=== PATIENT | female | born 1965 | race Caucasian/White ===

== ENCOUNTER 2017-07-16 10:07 | Day surgery (SDC) | payer BC, OTHER ==
[2017-07-15 09:36] VITALS: BMI 37.5
[2017-07-16] MEDS ORDERED: PROPOFOL 20 ML ONE ×2 (12:02)
[2017-07-16 12:49] VITALS: TEMP 98.5
[2017-07-16 13:34] VITALS: BP 105/65; PULSE 62
--- NOTE | 2017-07-19 11:42 | PATH ---
Surgical Pathology Report Patient Name: JUNIOR BENAVIDES [facility]. Rec. #: [id number] /Age/Gender: 1965 (Age: 51) / F Account: [id number] Location: [facility]-ENDOSCOPY Taken: 07/16/2017 Received: 07/16/2017 Reported: 07/19/2017 Physicians: Odilia Silva M.D. Specimen(s) Received A: BX PREPYLORIC POLYP B: BX 2ND PORTION DUODENUM BULB C: BX GASTRIC ANTRUM D: BX DISTAL, MID-ESOPHAGUS Clinical History Preoperative diagnosis: Acid reflux Postoperative diagnosis: Gastric polyp, hiatal hernia, GERD Final Diagnosis A. STOMACH, PREPYLORIC POLYP, BIOPSY: MILD CHRONIC GASTRITIS WITH FOVEOLAR HYPERPLASIA AND FOCAL INTESTINAL METAPLASIA. NO DYSPLASIA IDENTIFIED. IMMUNOSTAIN FOR H. PYLORI IS NEGATIVE. B. DUODENUM, SECOND PORTION OF BOWEL, BIOPSY: DUODENAL MUCOSA WITH NO PATHOLOGIC CHANGES. NO HISTOLOGIC EVIDENCE OF GLUTEN SENSITIVE ENTEROPATHY (CELIAC SPRUE) IDENTIFIED. C. STOMACH, ANTRUM, BIOPSY: GASTRIC ANTRAL AND FUNDIC MUCOSA WITH NO SIGNIFICANT PATHOLOGIC CHANGES. IMMUNOSTAIN FOR H. PYLORI IS NEGATIVE. D. ESOPHAGUS, DISTAL AND MID, BIOPSY: SQUAMOUS EPITHELIUM WITH PAPILLOMATOSIS SUGGESTIVE OF REFLUX ESOPHAGITIS. NO INTESTINAL METAPLASIA IDENTIFIED (NO DRIVER'S IDENTIFIED). NO EOSINOPHILIC ESOPHAGITIS IDENTIFIED. Electronically Signed Hero Gonzalez M.D. Gross Description A. Received in formalin, labeled "biopsy prepyloric polyp" are 2 hill, irregular portions of soft tissue measuring 0.2 and 0.5 cm. in greatest dimension. The specimens are submitted in toto in one cassette. B. Received in formalin, labeled "biopsy second portion of duodenum and bulb" are 4 hill, irregular portions of soft tissue ranging from 0.1-0.3 cm. in greatest dimension. The specimens are submitted in toto in one cassette. C. Received in formalin, labeled "biopsy antrum" are 4 hill, irregular portions of soft tissue ranging from 0.2-0.8 cm. in greatest dimension. The specimens are submitted in toto in one cassette. D. Received in formalin, labeled "biopsy distal, mid esophagus" are 2 hill, irregular portions of soft tissue averaging 0.3 cm. in greatest dimension. The specimens are submitted in toto in one cassette. 07/16/2017/2017
== END 2017-07-16 13:34 | disposition home or self-care (01) ==
LOC: JASU-ENDO 10:07
PROVIDERS: ATTEND Internal Medicine Gastroenterology
PROC: 0DB68ZX Excision of Stomach, Via Natural or Artificial Opening Endoscopic, Diagnostic (ICD-10-PCS; 2017-07-16)
PROC: 0DB28ZX Excision of Middle Esophagus, Via Natural or Artificial Opening Endoscopic, Diagnostic (ICD-10-PCS; 2017-07-16)
PROC: 0DB38ZX Excision of Lower Esophagus, Via Natural or Artificial Opening Endoscopic, Diagnostic (ICD-10-PCS; principal; 2017-07-16 12:00)
DX: K21.9 Gastro-esophageal reflux disease without esophagitis (principal); K44.9 Diaphragmatic hernia without obstruction or gangrene; K31.7 Polyp of stomach and duodenum
CPT/HCPCS: 76705-TC; 84703; 88305-TC; 88342-TC

== ENCOUNTER → 2018-06-09 | Day surgery (SDC) | payer BC ==
--- NOTE | 2018-06-10 17:45 | PATH ---
Cytology Non-Gynecological Report Patient Name: JUNIOR BENAVIDES [facility]. Rec. #: [id number] /Age/Gender: 1965 (Age: 52) / F Account: [id number] Location: RADIOLOGY INTER Taken: 06/09/2018 Received: 06/09/2018 Reported: 06/10/2018 Physicians: Avi Flores M.D. Specimen(s) Received RIGHT THYROID FNA Clinical History Right thyroid nodule, 2.91 x 2.45 x 1.31 cm Final Diagnosis THYROID, RIGHT, FINE NEEDLE ASPIRATION: SATISFACTORY FOR EVALUATION. BETHESDA III: ATYPIA OF UNDETERMINED SIGNIFICANCE IN THE SETTING OF CHRONIC LYMPHOCYTIC THYROIDITIS. CELLULAR CLUSTERS OF ATYPICAL FOLLICULAR CELLS WITH NUCLEAR ENLARGEMENT, NUCLEAR GROOVES, AND CROWDING DISPERSED TRABECULAR FRAGMENTS, MACRO AND MICRO FOLLICLES IN A BACKGROUND OF HETEROGENOUS LYMPHOCYTES, LYMPHOHISTIOCYTIC AGGREGATES AND LYMPHOID TANGLES PRESENT. Comment:Suggest clinical/radiologic correlation and repeat sampling after an appropriate interval (3-6 months) with material for molecular studies (Thyroseq), as clinically warranted. Electronically Signed Lauryn Mcleod M.D. Gross Description Received are eight direct smears, four of which are air-dried and Diff-Quik stained, and four of which are alcohol fixed and Pap stained. Also received is 20 ml of bloody formalin from which one cellblock is prepared.
== END | disposition home or self-care (01) ==
LOC: JRADIR 09:23
PROVIDERS: ATTEND Internal Medicine Endocrinology, Diabetes & Metabolism
PROC: 0G9K3ZX Drainage of Thyroid Gland, Percutaneous Approach, Diagnostic (ICD-10-PCS; principal; 2018-06-09)
DX: E06.3 Autoimmune thyroiditis (principal)
CPT/HCPCS: 76942; 88173; 88305-TC

== ENCOUNTER 2018-09-29 12:28 | Day surgery (SDC) | payer BC ==
[2018-09-29 12:31] VITALS: BMI 34.2
--- NOTE | 2018-09-29 12:33 | PDOC ---
History of Present Illness - General Chief Complaint: Nausea/Vomiting Stated Complaint: HARD TIME HOLDING FOOD DOWN Time Seen by Provider: 09/29/18 12:32 - History of Present Illness Initial Comments: 09/29/18 12:43 2 weeks of regurg after eating had lap band surgery 2006 went to see lap band surgeon 1 week ago who recommended coming to ED if symptoms persisted denies abdominal tenderness, fever, current nausea, chest pain, diarrhea Surgeon at bedside who Past History - Past Medical History Allergies/Adverse Reactions: Allergies Allergy/AdvReac Type Severity Reaction Status Date / Time No Known Allergies Allergy Verified 09/29/18 12:29 Home Medications: Ambulatory Orders Levothyroxine [Synthroid -] 200 mcg PO HS 11/18/12 Ranitidine [Zantac -] 150 mg PO DAILY 09/29/18 Anemia: Yes (IRON DEFICIENCY) Asthma: No Cancer: No Cardiac Disorders: No CVA: No COPD: No CHF: No Dementia: No Diabetes: No GI Disorders: Yes (DIVERTICULOSIS,GERD,HIATAL HERNIA) Disorders: No HTN: No Hypercholesterolemia: Yes Liver Disease: No Seizures: No Thyroid Disease: Yes (HYPO - NODULES) - Surgical History Abdominal Surgery: Yes (Laparoscopic Gastric Banding 10 yrs ago) Appendectomy: No Cardiac Surgery: No Cholecystectomy: No Lung Surgery: No Neurologic Surgery: Yes (microdisectomy L4L5) Orthopedic Surgery: Yes (hammer toe repair left foot 2017) - Suicide/Smoking/Psychosocial Hx Smoking History: Never smoked Hx Alcohol Use: No Drug/Substance Use Hx: No Substance Use Type: None Hx Substance Use Treatment: No *Physical Exam - Vital Signs Last Vital Signs Temp Pulse Resp BP Pulse Ox 0/0 L 09/29/18 12:28 Moderate Sedation - Procedure Monitoring Vital Signs: Procedure Monitoring Vital Signs Temperature Pulse Rate Respiratory Rate Blood Pressure 0/0 L 09/29/18 12:28 O2 Sat by Pulse Oximetry (%) *DC/Admit/Observation/Transfer Diagnosis at time of Disposition: Vomiting - Discharge Dispostion Condition at time of disposition: Stable Decision to Admit order: Yes - Referrals Referrals: Charmaine Marc [Primary Care Provider] - - Patient Instructions - Post Discharge Activity
--- NOTE | 2018-09-29 12:48 | PDOC ---
Attending Attestation - Resident Resident Name: Viridiana Rivas - ED Attending Attestation I have performed the following: I have examined & evaluated the patient, The case was reviewed & discussed with the resident, I agree w/resident's findings & plan, Exceptions are as noted - HPI HPI: 09/29/18 12:47 52y F sp lap banding surgery presents with persistent vomiting, unable to hold anything down beside broth for epast several weeks.had seen her surgeon last week, notes that her port was inaccessible [facility] and she is unable to toleqate anything bymouth. pt denies any abd pain, fever/chills, diarrhea, dysuria. Surgeon: Dr. Hair - Physicial Exam PE: 09/29/18 13:08 Genearl: no acute distress, well appaering,w ell nourished Abd: soft nontender, no rebound/guarding ENT: mmm - Medical Decision Making 09/29/18 13:09 will obtain preop labs abd soft nontender dr. Hair bedside evaluating patient for revision of her lap band - notes itw as malpositioned last week and was unable to access it to adjust Heart Score/ECG Review - ECG Impressions Comment:: 09/29/18 14:26 ekg rate of 67 sinus normal axis normal r wave pgression no st changes suggtesive of acute ischemia
[2018-09-29 13:15] LABS: BASO % 1.9 % (0-2.0); EOS % 2.7 % (0-4.5); HEMATOCRIT 36.6 % (32.4-45.2); HEMOGLOBIN 11.8 GM/dl (10.7-15.3); LYMPH % 29.1 % (8-40); MCH 28.9 pg (25.7-33.7); MCHC 32.3 g/dl (32.0-36.0); MEAN CELL VOLUME 89.4 fl (80-96); MEAN PLT VOLUME 7.3 fl (7.5-11.1); MONO % 8.8 % (3.8-10.2); NEUT % 57.5 % (42.8-82.8); PLATELET COUNT 501 K/MM3 (134-434); RBC 4.09 M/mm3 (3.60-5.2); RDW 13.8 % (11.6-15.6); WHITE BLOOD COUNT 5.3 K/mm3 (4.0-10.8)
[2018-09-29 13:28] LABS: ALBUMIN 4.1 g/dl (3.4-5.0); ALK PHOS 66 U/L (45-117); ANION GAP 12 MMOL/L (8-16); BILIRUBIN,TOTAL 0.7 mg/dl (0.2-1); BLOOD UREA NITROGEN 14 mg/dl (7-18); CHLORIDE 98 mmol/L (98-107); CO2 25 mmol/L (21-32); CREATININE 0.6 mg/dl (0.55-1.3); GLUCOSE,RANDOM 97 mg/dl (74-106); POTASSIUM 3.7 mmol/L (3.5-5.1); SGOT/AST 20 U/L (15-37); SGPT/ALT 13 U/L (13-61); SODIUM 135 mmol/L (136-145); TOT PROT 7.6 g/dl (6.4-8.2)
[2018-09-29 13:29] LABS: ACTIVATED PTT 26.1 SECONDS (25.2-36.5)
[2018-09-29 13:33] LABS: INR 1.05 (0.82-1.09); PROTHROMBIN TIME (PATIENT) 11.7 SEC (10.2-13.0)
[2018-09-29] MEDS ORDERED: PROPOFOL 20 ML ONE ×3 (14:03→14:24)
[2018-09-29] MEDS ORDERED: SUCCINYLCHOLINE CHLORIDE 200 MG/10 ML VIAL ONE (14:03)
[2018-09-29] MEDS ORDERED: MIDAZOLAM HCL 2 MG/2 ML SINGLE DOSE VIAL ONE (14:04)
[2018-09-29] MEDS ORDERED: BUPIVACAINE HCL/PF 2.5 MG/ML - 30 ML VIAL IJ ONE ×2 (14:07→14:46)
[2018-09-29] MEDS ORDERED: DEXAMETHASONE SOD PHOSPHATE 4 MG/1 ML VIAL ONE (14:20)
[2018-09-29] MEDS ORDERED: KETOROLAC TROMETHAMINE 30 MG/1 ML VIAL ONE (14:20)
[2018-09-29] MEDS ORDERED: ceFAZolin SODIUM 1 GM VIAL ONE (14:20)
[2018-09-29] MEDS ORDERED: ONDANSETRON 4 MG/2 ML VIAL ONE (14:20)
--- NOTE | 2018-09-29 14:32 | HP ---
DATE OF ADMISSION: 09/29/2018 CHIEF COMPLAINT: Vomiting. HISTORY OF PRESENT ILLNESS: The patient is a 52-year-old woman who had a Lap-Band for a number of years and complained recently of the band being too tight and causing vomiting continuously. Attempts to adjust the band at the bedside were unsuccessful as the port has slipped and could not be accessed. Even under fluoroscopy and x-ray could not be accessed so the patient is being brought emergently to surgery to revise the port and then the port can be accessed and the lap band can be loosened and control patient's vomiting. PAST MEDICAL HISTORY: Significant for hypothyroidism. PAST SURGICAL HISTORY: Bilateral breast biopsies, biopsy of the thyroid gland and insertion of a Lap-Band. MEDICATIONS: The patient takes Synthroid for the thyroid. ALLERGIES: Patient has no known allergies. REVIEW OF SYSTEMS: Cardiovascular: Within normal limits. Pulmonary: Within normal limits. Gastrointestinal: Evidence of vomiting most foods and even liquid. Musculoskeletal: Within normal limits. PHYSICAL EXAMINATION:General: Awake, alert, in no acute distress. HEENT: No masses palpated. Patient with recent biopsy of the thyroid gland. Lungs: Clear bilaterally. Heart: Regular sinus rhythm. Abdomen: Some slight tenderness in palpation directly over the port which is turned. Otherwise soft, nontender on palpation. Extremities: No swelling or edema. IMPRESSION: Vomiting and malfunctioning subcutaneous gastric band port. PROCEDURE: For revision of gastric band port plus band adjustment. Avi [id number]
[2018-09-29] MEDS ORDERED: BUPIVACAINE HCL/PF 0.25% (2.5MG/ML) 10 ML VIAL IJ ONE (15:13)
[2018-09-29] MEDS ORDERED: ONDANSETRON 4 MG/2 ML VIAL IVPUSH PRN ×2 (15:22→15:32)
[2018-09-29] MEDS ORDERED: oxyCODONE HCL 5 MG TABLET PO PRN ×3 (15:22→15:32)
--- NOTE | 2018-09-29 15:29 | OP ---
Operative Note - Note: Operative Date: 09/29/18 Pre-Operative Diagnosis: Vomiting. Mechanical complication of subcutaneous gastric band port Operation: Revision of subcutaneous gastric band port. Band adjustment Findings: Subcutaneous port was rotated 180 degrees and could not be accessed at bedside. Patient with tight band and frequent vomiting. Post-Operative Diagnosis: Same as Pre-op Surgeon: Alberto Hair Anesthesia: Local Estimated Blood Loss (mls): 20 Operative Report Dictated: Yes
[2018-09-29] MEDS ORDERED: SODIUM CHLORIDE 1,000 ML IV SCH (15:30)
[2018-09-29] MEDS ORDERED: PROMETHAZINE HCL 25 MG/1 ML VIAL IVPUSH PRN (15:32)
[2018-09-29] MEDS ORDERED: ACETAMINOPHEN 325 MG TABLET (FP) PO PRN (15:32)
--- NOTE | 2018-09-29 15:41 | EKG ---
Test Reason : Blood Pressure : / mmHG Vent. Rate : 067 BPM Atrial Rate : 067 BPM P-R Int : 158 ms QRS Dur : 088 ms QT Int : 424 ms P-R-T Axes : 020 000 014 degrees QTc Int : 448 ms NORMAL SINUS RHYTHM LOW VOLTAGE QRS CANNOT RULE OUT ANTERIOR INFARCT , AGE UNDETERMINED ABNORMAL ECG WHEN COMPARED WITH ECG OF 28-AUG-2016 16:39, T WAVE INVERSION MORE EVIDENT IN ANTERIOR LEADS Confirmed by BEN JOY, DAVID ([id number]) on 09/29/2018 3:41:30 PM Referred By: Confirmed By:DAVID CONTRERAS MD
[2018-09-29 15:43] VITALS: TEMP 97.9
[2018-09-29 17:10] VITALS: BP 114/71; PULSE 71
--- NOTE | 2018-09-29 17:43 | OP ---
DATE OF OPERATION: 09/29/2018 PREOPERATIVE DIAGNOSES: 1. Vomiting. 2. Mechanical complication of subcutaneous gastric band port. POSTOPERATIVE DIAGNOSES: 1. Vomiting. 2. Mechanical complication of subcutaneous gastric band port. PROCEDURE PERFORMED: 1. Revision of subcutaneous gastric band port. 2. Gastric band adjustment. OPERATING SURGEON: Colby Johnson MD ANESTHESIA: Local with IV sedation. EXPECTED BLOOD LOSS: 20 mL OPERATIVE PROCEDURE: The patient was brought to the operating room, placed on the OR table in the supine position. All precautions were taken initially including padding for the back. Then, the abdomen was prepped and draped in usual manner. The patient was brought to surgery because the patient had a band that was too tight and causing significant vomiting. The port was unable to be accessed both at the bedside and also under fluoroscopy in x-ray. Therefore, the port had to be revised emergently in order to loosen the band. An incision was made in the right upper quadrant over the previous port incision. This incision was carried d own through the skin and subcutaneous tissue with electrocautery until the fibrous capsule around the port was reached. The port was noted to be rotated probably 120 degrees, and the scar tissue around the port was dissected with electrocautery until the port could be lifted up into the operative field. All the Prolene sutures were removed in order to prevent any nidus of future infection in that area. At this point, with local anesthesia given of 0.25% Marcaine, in the subcutaneous tissue more medially towards the midline, dissection was done with electrocautery and blunt dissection until the linea alba was reached. Once clearing was noted of the linea alba, 2-0 Prolene sutures were placed on all 4 sides, and the port was now reattached to the linea alba as the sutures were tied down in place. A 22-gauge needle was inserted into the port, and 3 mL were noted. Next, 1.5 mL were removed in order to give the patient relief from vomiting, and at that point, closure was done on the incision. The subcutaneous tissues were closed with 3-0 Vicryl in interrupted fashion, followed by 4-0 Biosyn in subcuticular fashion. Dressings were applied. Patient awoken from anesthesia and transferred out of the operating room to the recovery room in stable condition. Patient transferred to the ambulatory surgery unit in stable condition. COLBY JOHNSON M.D. [id number]
[2018-09-29] MEDS ORDERED: FAMOTIDINE 20 MG/50 ML IVPB 20 MG/50 ML MG IVPB SCH (22:00)
== END 2018-09-29 17:18 | disposition home or self-care (01) ==
LOC: FER 12:28 → FASUSAT 12:46
PROVIDERS: ATTEND Surgery
PROC: 0DW60CZ Revision of Extraluminal Device in Stomach, Open Approach (ICD-10-PCS; principal; 2018-09-29 14:00)
DX: K95.09 Other complications of gastric band procedure (principal); E03.9 Hypothyroidism, unspecified; E78.00 Pure hypercholesterolemia, unspecified
CPT/HCPCS: 43886; S2083; 36415; 80053; 84703; 85025; 85610; 85730; 93005; 99283-25

== ENCOUNTER 2018-12-02 05:08 | Day surgery (SDC) | payer BC ==
[2018-11-23 14:48] VITALS: BMI 37.5
[2018-12-02] MEDS ORDERED: PROPOFOL 20 ML ONE ×2 (07:09)
[2018-12-02] MEDS ORDERED: MIDAZOLAM HCL 2 MG/2 ML SINGLE DOSE VIAL ONE (07:09)
[2018-12-02] MEDS ORDERED: fentaNYL CITRATE 250 MCG/5 ML VIAL ONE (07:09)
[2018-12-02] MEDS ORDERED: ROCURONIUM BROMIDE 50 MG/5 ML VIAL ONE (07:11)
[2018-12-02] MEDS ORDERED: SUCCINYLCHOLINE CHLORIDE 200 MG/10 ML VIAL ONE (07:11)
[2018-12-02] MEDS ORDERED: DEXAMETHASONE SOD PHOSPHATE 4 MG/1 ML VIAL ONE (07:12)
[2018-12-02] MEDS ORDERED: LIDOCAINE HCL/PF 2% SDV 5ML VIAL ONE (07:12)
[2018-12-02] MEDS ORDERED: LIDOCAINE HCL 2% JELLY 10 ML CARTRIDGE ONE (07:16)
[2018-12-02] MEDS ORDERED: DESFLURANE GAS 240 ML BOTTLE IH ONE (07:16)
[2018-12-02] MEDS ORDERED: LIDOCAINE 1%-EPI 1:100,000 30 ML MDV IJ ONE (07:30)
[2018-12-02] MEDS ORDERED: MICROFIBRILLAR COLLAGEN 1 GM EACH ONE (07:31)
[2018-12-02] MEDS ORDERED: SODIUM CHLORIDE 0.9% P/F 10 ML VIAL IJ ONE (08:54)
[2018-12-02] MEDS ORDERED: ceFAZolin SODIUM 1 GM VIAL ONE (08:54)
[2018-12-02] MEDS ORDERED: ceFAZolin SODIUM 1 GM VIAL IVPB ONE (09:03)
[2018-12-02] MEDS ORDERED: LIDOCAINE 1%/EPI 1:100000 (20 ML MULTI DOSE VIAL) IJ ONE (09:21)
[2018-12-02] MEDS ORDERED: MICROFIBRILLAR COLLAGEN 1 GM EACH NR ONE (10:05)
[2018-12-02] MEDS ORDERED: GLYCOPYRROLATE 0.2 MG/1 ML VIAL ONE (10:08)
[2018-12-02] MEDS ORDERED: NEOSTIGMINE METHYLSULFATE 0.5 MG/ML - 10 ML MDV ONE (10:09)
--- NOTE | 2018-12-02 10:35 | SURG ---
Surgery Solar Technician Note Solar Technician: Huey Francisco PA-C Date of Service: 12/02/18 Diagnosis: Thryoid nodules Procedure: Right hemithyroidectomy I was present for the entirety of the operative procedure. For further detail, please refer to operative report. Visit type - Case Type Case Type: Scheduled - Emergency Emergency Visit: No - New patient This patient is new to me today: Yes Date on this admission: 12/02/18 - Critical Care Critical Care patient: No
--- NOTE | 2018-12-02 10:35 | OP ---
Operative Note - Note: Operative Date: 12/02/18 Pre-Operative Diagnosis: Thyroid nodules Operation: Right thyroidectomy Post-Operative Diagnosis: Same as Pre-op Surgeon: Husam Douglas Loan Administrator: Huey Francisco Anesthesia: General Estimated Blood Loss (mls): 10 Operative Report Dictated: Yes
--- NOTE | 2018-12-02 11:17 | OP ---
DATE OF OPERATION: 12/02/2018 SURGICAL ATTENDING: Pb Yee MD TARIFF COMPILING CLERK: Huey Francisco PA-C PREOPERATIVE DIAGNOSIS: Right thyroid nodule. POSTOPERATIVE DIAGNOSIS: Right thyroid nodule. ANESTHESIA: General endotracheal. PROCEDURE: Right hemithyroidectomy. DESCRIPTION OF PROCEDURE: The patient was taken into the operating room, placed in a supine position, endotracheally intubated. A shoulder roll was placed. Neck ultrasound was performed showing a diffusely hypoechoic thyroid gland with the right thyroid lobe enlarged and a lower pole nodule. No adenopathy seen. The neck was then prepped and draped in the usual sterile fashion. Local anesthesia was administered, and a 4.4-cm horizontal incision was made in the mid neck and carried down through subcutaneous tissues and platysma. Subplatysmal flaps were raised superiorly and inferiorly, and flap hooks were placed for exposure. The mean raphe was incised, and the right strap muscles were elevated off the thyroid gland. The recurrent laryngeal nerve was identified, dissected, and preserved. The superior laryngeal nerve and parathyroid glands were also preserved. The superior, posterior, and inferior attachments of the thyroid lobe were transected. The thyroid was then lifted off of the trachea, and the isthmus was transected. In this way, it was removed. It was then examined and no parathyroid tissue was found. It was then sent to Pathology for permanent evaluation. Hemostasis was achieved with electrocautery and Avitene. The wound was then closed in 3 layers after hemostasis was assured. Sterile dressings were placed. The patient was then awakened, extubated, and taken to recovery in stable condition. Dr. Yee, the attending surgeon, was present throughout the entire procedure. PB YEE M.D. [id number]
[2018-12-02] MEDS ORDERED: ACETAMINOPHEN INJECTION 100 ML IVPB ONE (11:47)
[2018-12-02] MEDS ORDERED: ACETAMINOPHEN 1000 MG/100 ML VIAL (NON FORMULARY) IVPB ONE ×2 (11:49→11:56)
[2018-12-02] MEDS ORDERED: oxyCODONE HCL 5 MG TABLET PO PRN (11:52)
[2018-12-02] MEDS ORDERED: ONDANSETRON 4 MG/2 ML VIAL IVPUSH PRN (11:52)
[2018-12-02] MEDS ORDERED: LACTATED RINGERS SOLUTION 1,000 ML IV SCH (12:00)
[2018-12-02 15:09] VITALS: BP 117/68; PULSE 78; TEMP 97.5
--- NOTE | 2018-12-07 11:46 | PATH ---
Surgical Pathology Report Patient Name: JUNIOR BENAVIDES [facility]. Rec. #: [id number] /Age/Gender: 1965 (Age: 53) / F Account: [id number] Location: [facility] SURGICAL Taken: 12/02/2018 Received: 12/02/2018 Reported: 12/07/2018 Physicians: Husam Douglas M.D. Specimen(s) Received RIGHT THYROID LOBE Clinical History Right thyroid nodule Final Diagnosis RIGHT THYROID LOBE, HEMITHYROIDECTOMY: THYROID TISSUE WITH CHRONIC LYMPHOCYTIC THYROIDITIS. ONE REACTIVE LYMPH NODE. Comment: The thyroid parenchyma shows extensive lymphoplasmacytic infiltrate with germinal center formation, atrophic follicles with abundant Hurthle cells metaplasia and reduced colloid. The epithelium demonstrates enlarged and overlapping nuclei with partial nuclear clearing, focal squamous nests present. Findings are consistent with chronic lymphocytic thyroiditis, suggest clinical correlation including serologic study results. Electronically Signed Rene Blount M.D. Gross Description Received in formalin labeled "right thyroid lobe," is a 16 g, 4.7 x 3.0 x 2.2 cm thyroid lobe. The outer surface is hill-pink and intact. Sectioning reveals homogeneous hill-pink, pale parenchyma. No normal thyroid parenchyma is identified. Separately received within the same container is a 1.2 x 0.8 x 0.3 cm portion of thyroid tissue. Sectioning reveals homogeneous pale hill-pink parenchyma. Instructor Product Inspection sections are submitted in 7 cassettes as follows: 4-1-nvvaobibgzhj submitted thyroid lobe; 7-entirely submitted separately received portion of tissue. /12/02/2018 saudi12/02/2018
== END 2018-12-02 15:00 | disposition home or self-care (01) ==
LOC: JASU-SURG 05:08
PROVIDERS: ATTEND Surgery
PROC: 0GTH0ZZ Resection of Right Thyroid Gland Lobe, Open Approach (ICD-10-PCS; principal; 2018-12-02 08:30)
DX: E04.1 Nontoxic single thyroid nodule (principal)
CPT/HCPCS: 84703; 88307-TC; 94760; J0131

== ENCOUNTER 2019-05-05 10:57 | Day surgery (SDC) | payer OTHER ==
[2019-05-02 17:09] VITALS: BMI 36.5
[~2019-05-05 10:57] MED LIST: BUPIVACAINE HCL/PF 0.5% (5MG/ML) 10 ML VIAL IJ ONE; methylPREDNISolone ACET (DEPO) 40 MG/1 ML VIAL NR ONE
[2019-05-05] MEDS ORDERED: BUPIVACAINE HCL/PF 0.5% (5MG/ML) 10 ML VIAL ONE (13:08)
[2019-05-05] MEDS ORDERED: methylPREDNISolone ACET (DEPO) 40 MG/1 ML VIAL ONE (13:08)
[2019-05-05] MEDS ORDERED: MIDAZOLAM HCL 2 MG/2 ML SINGLE DOSE VIAL ONE (13:58)
[2019-05-05] MEDS ORDERED: LIDOCAINE HCL/PF 2% SDV 5ML VIAL ONE (13:58)
[2019-05-05] MEDS ORDERED: PROPOFOL 20 ML ONE (13:58)
[2019-05-05] MEDS ORDERED: ONDANSETRON 4 MG/2 ML VIAL IVPUSH PRN (14:04)
[2019-05-05] MEDS ORDERED: oxyCODONE HCL 5 MG TABLET PO PRN ×2 (14:04)
[2019-05-05] MEDS ORDERED: ceFAZolin SODIUM 1 GM VIAL ONE ×2 (14:10→14:13)
[2019-05-05] MEDS ORDERED: LACTATED RINGERS SOLUTION 1,000 ML IV SCH (14:15)
[2019-05-05] MEDS ORDERED: BUPIVACAINE HCL/PF 0.5% (5MG/ML) 10 ML VIAL IJ ONE (14:22)
[2019-05-05] MEDS ORDERED: methylPREDNISolone ACET (DEPO) 40 MG/1 ML VIAL NR ONE (14:22)
[2019-05-05 15:52] VITALS: PULSE 70
[2019-05-05 17:58] VITALS: BP 123/71; TEMP 98.1
--- NOTE | 2019-05-06 06:26 | OP ---
DATE OF OPERATION: 05/05/2019 PREOPERATIVE DIAGNOSIS: Lumbar spinal instability with facet arthropathy. POSTOPERATIVE DIAGNOSIS: Lumbar spinal instability with facet arthropathy. PROCEDURE PERFORMED: Lumbar spinal facet block L5-S1 left and right sides under fluoroscopic guidance. SURGEON: Cedrick Feng MD SHIPPING SPECIALIST: None ANESTHESIA: Dejon Presley MD, monitored anesthesia care was performed. DESCRIPTION OF PROCEDURE: The procedure consisted of the patient being brought into the operating room and gently transferred from the stretcher to the OR table with all bony prominences well padded. The lumbar spine was prepped and draped in sterile fashion. The patient was given intravenous antibiotics and pulse irrigation throughout the procedure to minimize the risk of infection. A complete risk, benefit, alternative discussion was conducted with the patient, which was inclusive of, but not limited to, infection, bleeding, , paralysis, increased pain, need for repeat surgery. Patient asked questions, understood the procedure, and desired to proceed with the surgical treatment. Following sterile preparation and draping of lumbar spine, an appropriate time-out was conducted, which was inclusive of, but not limited to, type of surgery, site of surgery, surgeon, and anesthesiologist. Following sterile preparation and draping of the lumbar spine, lumbar spinal imaging was performed with fluoroscopic guidance, and the 22-gauge spinal needle was introduced into 1st the left and then the right L5-S1 facets. A solution of Depo-Medrol 40 mg/mL 1 mL and Marcaine was instilled into each facet under fluoroscopic guidance. The needle was withdrawn. Sterile dressings were applied. The patient was then gently awoken from anesthesia without incident and transferred from the operating room to the recovery room in satisfactory condition. There were no intraoperative complications. Avi [id number] MTDD
== END 2019-05-05 18:28 | disposition home or self-care (01) ==
LOC: FASU 10:57
PROVIDERS: ATTEND Orthopaedic Surgery
PROC: 3E0T3BZ Introduction of Anesthetic Agent into Peripheral Nerves and Plexi, Percutaneous Approach (ICD-10-PCS; 2019-05-05)
PROC: BR16YZZ Fluoroscopy of Lumbar Facet Joint(s) using Other Contrast (ICD-10-PCS; 2019-05-05)
PROC: 3E0T33Z Introduction of Anti-inflammatory into Peripheral Nerves and Plexi, Percutaneous Approach (ICD-10-PCS; principal; 2019-05-05 12:30)
DX: M53.2X7 Spinal instabilities, lumbosacral region (principal); M46.96 Unspecified inflammatory spondylopathy, lumbar region
CPT/HCPCS: 72100-TC-FY; 94760

== ENCOUNTER 2019-06-02 12:04 | Day surgery (SDC) | payer BC, OTHER ==
[2019-06-01 12:05] VITALS: BMI 36.5
[2019-06-02] MEDS ORDERED: LIDOCAINE HCL 1%, 10 MG/ML (20ML VIAL) ONE (14:29)
[2019-06-02] MEDS ORDERED: BUPIVACAINE HCL 0.25% 125 MG/50 ML VIAL ONE (14:29)
[2019-06-02] MEDS ORDERED: methylPREDNISolone ACET (DEPO) 40 MG/1 ML VIAL ONE ×2 (14:29→14:34)
[2019-06-02] MEDS ORDERED: BUPIVACAINE HCL/PF 0.5% (5MG/ML) 10 ML VIAL ONE (14:34)
[2019-06-02] MEDS ORDERED: MIDAZOLAM HCL 2 MG/2 ML SINGLE DOSE VIAL ONE (14:43)
[2019-06-02] MEDS ORDERED: PROPOFOL 20 ML ONE (14:43)
[2019-06-02] MEDS ORDERED: SUCCINYLCHOLINE CHLORIDE 200 MG/10 ML SYRINGE ONE (14:43)
[2019-06-02] MEDS ORDERED: ceFAZolin SODIUM 1 GM VIAL ONE (14:46)
[2019-06-02 15:50] VITALS: BP 98/67; PULSE 72; TEMP 98.3
--- NOTE | 2019-06-02 18:54 | OP ---
DATE OF OPERATION: 06/02/2019 PREOPERATIVE DIAGNOSIS: Lumbar spinal instability with radiculopathy. POSTOPERATIVE DIAGNOSIS: Lumbar spinal instability with radiculopathy. PROCEDURE PERFORMED: Lumbar spinal facet block left and right sides with fluoroscopic guidance at the L3-L4 level. ANESTHESIA: Dejon Presley MD TYPE OF ANESTHESIA: Monitored anesthesia care. SURGEON: Bronsno Feng MD BUILDING CONSTRUCTION ENGINEER: None. DESCRIPTION OF PROCEDURE: The procedure consisted of the patient being brought into the operating room and gently transferred from the stretcher to the OR table with all bony prominences well padded. Lumbar spine was prepared and draped in a sterile fashion. The patient was given intravenous antibiotics and sterile technique throughout the procedure to minimize risk of infection. A complete risk, benefit, alternative discussion was conducted with the patient, which was inclusive of, but not limited to, infection, bleeding, , paralysis, increased pain, need for repeat surgery. Patient asked questions, understood the procedure, and desired to proceed with the surgical treatment. Following sterile preparation and draping of the lumbar spine, fluoroscopic guidance was used to identify the left and right L3, L4 facets. A 22-gauge spinal needle was introduced into the facet, 1st left then right sides. A solution of Depo-Medrol 40 mg/mL, 1 mL and 4 mL of Marcaine was instilled into each of the facets. The patient had the needles withdrawn. Sterile dressings were applied. Patient was then gently awoken from anesthesia without incident, transferred from the operating room to the recovery room in stable condition. There were no intraoperative complications. Patient tolerated the procedure well. BRONSON FENG M.D. [id number]
== END 2019-06-02 16:20 | disposition home or self-care (01) ==
LOC: FASU 12:04
PROVIDERS: ATTEND Orthopaedic Surgery
PROC: 3E0T3BZ Introduction of Anesthetic Agent into Peripheral Nerves and Plexi, Percutaneous Approach (ICD-10-PCS; 2019-06-02)
PROC: BR16YZZ Fluoroscopy of Lumbar Facet Joint(s) using Other Contrast (ICD-10-PCS; 2019-06-02)
PROC: 3E0T33Z Introduction of Anti-inflammatory into Peripheral Nerves and Plexi, Percutaneous Approach (ICD-10-PCS; principal; 2019-06-02 14:39)
DX: M53.2X6 Spinal instabilities, lumbar region (principal); M54.16 Radiculopathy, lumbar region
CPT/HCPCS: 72100-TC-FY; 84703

== ENCOUNTER 2020-08-16 04:57 | Day surgery (SDC) | payer BC ==
[2020-08-15 10:53] VITALS: BMI 39.5
[2020-08-16] MEDS ORDERED: MIDAZOLAM HCL 2 MG/2 ML SINGLE DOSE VIAL ONE (10:01)
[2020-08-16 10:40] VITALS: TEMP 97.1
[2020-08-16 11:18] VITALS: BP 113/60; PULSE 68
== END 2020-08-16 12:10 | disposition home or self-care (01) ==
LOC: JASU-ENDO 04:57
PROVIDERS: ATTEND Internal Medicine Gastroenterology
PROC: 0DB68ZX Excision of Stomach, Via Natural or Artificial Opening Endoscopic, Diagnostic (ICD-10-PCS; 2020-08-16)
PROC: 0DB28ZX Excision of Middle Esophagus, Via Natural or Artificial Opening Endoscopic, Diagnostic (ICD-10-PCS; 2020-08-16)
PROC: 0DB38ZX Excision of Lower Esophagus, Via Natural or Artificial Opening Endoscopic, Diagnostic (ICD-10-PCS; 2020-08-16)
PROC: 0DB98ZX Excision of Duodenum, Via Natural or Artificial Opening Endoscopic, Diagnostic (ICD-10-PCS; principal; 2020-08-16 10:00)
DX: K21.9 Gastro-esophageal reflux disease without esophagitis (principal); K44.9 Diaphragmatic hernia without obstruction or gangrene; K22.2 Esophageal obstruction; K22.10 Ulcer of esophagus without bleeding; K29.80 Duodenitis without bleeding; K29.50 Unspecified chronic gastritis without bleeding
CPT/HCPCS: 81025; 88305-TC; 88312-TC; 88342-TC

== ENCOUNTER 2022-09-09 04:25 | Day surgery (SDC) | payer BC ==
[2022-09-07 16:38] VITALS: BMI 36.5
[2022-09-09 10:38] VITALS: TEMP 97
[2022-09-09 10:42] VITALS: BP 129/89; PULSE 80; RESP 16
== END 2022-09-09 10:45 | disposition home or self-care (01) ==
LOC: JASU-ENDO 04:25
PROVIDERS: ATTEND Internal Medicine Gastroenterology
PROC: 0DB98ZX Excision of Duodenum, Via Natural or Artificial Opening Endoscopic, Diagnostic (ICD-10-PCS; 2022-09-09)
PROC: 0DB78ZX Excision of Stomach, Pylorus, Via Natural or Artificial Opening Endoscopic, Diagnostic (ICD-10-PCS; 2022-09-09)
PROC: 0DB68ZX Excision of Stomach, Via Natural or Artificial Opening Endoscopic, Diagnostic (ICD-10-PCS; 2022-09-09)
PROC: 0DB28ZX Excision of Middle Esophagus, Via Natural or Artificial Opening Endoscopic, Diagnostic (ICD-10-PCS; 2022-09-09)
PROC: 0DB38ZX Excision of Lower Esophagus, Via Natural or Artificial Opening Endoscopic, Diagnostic (ICD-10-PCS; 2022-09-09)
PROC: 0DJD8ZZ Inspection of Lower Intestinal Tract, Via Natural or Artificial Opening Endoscopic (ICD-10-PCS; principal; 2022-09-09 09:00)
DX: Z12.11 Encounter for screening for malignant neoplasm of colon (principal); K31.7 Polyp of stomach and duodenum; K44.9 Diaphragmatic hernia without obstruction or gangrene; K21.00 Gastro-esophageal reflux disease with esophagitis, without bleeding; K29.50 Unspecified chronic gastritis without bleeding; K57.30 Diverticulosis of large intestine without perforation or abscess without bleeding; K64.8 Other hemorrhoids; Z86.010 Personal history of colon polyps
CPT/HCPCS: 43239; G0105; 81025; 88305-TC; 88342-TC

== ENCOUNTER 2022-10-13 09:46 | Day surgery (SDC) | payer BC ==
[2022-10-07 18:05] VITALS: BMI 36.3
[2022-10-13] MEDS ORDERED: BUPIVACAINE HCL/PF 2.5 MG/ML - 30 ML VIAL IJ ONE (12:06)
[2022-10-13] MEDS ORDERED: MIDAZOLAM HCL 2 MG/2 ML SINGLE DOSE VIAL ONE (12:31)
[2022-10-13] MEDS ORDERED: PROPOFOL 20 ML ONE (12:31)
[2022-10-13] MEDS ORDERED: ROCURONIUM BROMIDE 50 MG/5 ML SYRINGE ONE (12:34)
[2022-10-13] MEDS ORDERED: ceFAZolin SODIUM 1 GM VIAL ONE (13:11)
[2022-10-13] MEDS ORDERED: ONDANSETRON 4 MG/2 ML VIAL ONE (13:11)
[2022-10-13] MEDS ORDERED: DEXAMETHASONE SOD PHOSPHATE 4 MG/1 ML VIAL ONE (13:11)
[2022-10-13] MEDS ORDERED: PROMETHAZINE HCL 25 MG/1 ML VIAL IVPB PRN (13:22)
[2022-10-13] MEDS ORDERED: ONDANSETRON 4 MG/2 ML VIAL IVPUSH PRN ×2 (13:22→14:03)
[2022-10-13] MEDS ORDERED: LACTATED RINGERS SOLUTION 1,000 ML IV SCH (13:30)
[2022-10-13] MEDS ORDERED: oxyCODONE HCL 5 MG TABLET PO PRN (14:03)
[2022-10-13] MEDS ORDERED: SODIUM CHLORIDE 1,000 ML IV SCH (14:15)
[2022-10-13] MEDS ORDERED: FENTANYL CITRATE/PF 50 MCG/ML VIAL ONE (14:39)
[2022-10-13 15:34] VITALS: TEMP 97.7
[2022-10-13 15:36] VITALS: RESP 20
[2022-10-13 16:43] VITALS: BP 106/56; PULSE 67
[2022-10-13] MEDS ORDERED: FAMOTIDINE 20 MG/50 ML IVPB 20 MG/50 ML MG IVPB SCH (22:00)
== END 2022-10-13 16:43 | disposition home or self-care (01) ==
LOC: FASU 09:46
PROVIDERS: ATTEND Surgery
PROC: 0DW60CZ Revision of Extraluminal Device in Stomach, Open Approach (ICD-10-PCS; principal; 2022-10-13 13:01)
DX: T85.518A Breakdown (mechanical) of other gastrointestinal prosthetic devices, implants and grafts, initial encounter (principal); K95.09 Other complications of gastric band procedure; K31.89 Other diseases of stomach and duodenum; R10.9 Unspecified abdominal pain; Y73.3 Surgical instruments, materials and gastroenterology and urology devices (including sutures) associated with adverse incidents; Y93.89 Activity, other specified
CPT/HCPCS: 84703; 88300-TC; 94760; C1889